=== PATIENT | female | born 1995 | race Hispanic/Latino ===

== ENCOUNTER 2017-06-29 05:54 | Emergency (ER) | payer BC, OTHER ==
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
== END 2017-06-29 07:47 | disposition home or self-care (01) ==
LOC: ERS 05:54
DX: S30.0XXA Contusion of lower back and pelvis, initial encounter (principal); S40.012A Contusion of left shoulder, initial encounter; S80.02XA Contusion of left knee, initial encounter; V47.5XXA Car driver injured in collision with fixed or stationary object in traffic accident, initial encounter; W22.11XA Striking against or struck by driver side automobile airbag, initial encounter
CPT/HCPCS: 72100